=== PATIENT | male | born 1985 | race Two or more races ===

== ENCOUNTER 2019-11-03 17:36 | Emergency (ER) | payer MEDICAID ==
[~2019-11-03] VITALS: Ht 170.2 cm; Wt 68.0 kg
[2019-11-03] MEDS ORDERED: KETOROLAC 30MG/ML VIAL IM ONE (18:45)
[2019-11-03 20:30] VITALS: BP 114/74
== END 2019-11-03 20:33 | disposition home or self-care (01) ==
LOC: ER 17:36
DX: S16.1XXA Strain of muscle, fascia and tendon at neck level, initial encounter (principal); S66.911A Strain of unspecified muscle, fascia and tendon at wrist and hand level, right hand, initial encounter; M54.6 Pain in thoracic spine; R07.9 Chest pain, unspecified; V49.88XA Car occupant (driver) (passenger) injured in other specified transport accidents, initial encounter; Y93.89 Activity, other specified; Y92.89 Other specified places as the place of occurrence of the external cause; Y99.8 Other external cause status
CPT/HCPCS: 71046; 72040; 72070; 73110; 96372; 99284; J1885